=== PATIENT | female | born 1980 | race Caucasian/White ===

== ENCOUNTER 2023-10-14 15:23 | Emergency (ER) | payer MEDICAID ==
[~2023-10-14] VITALS: Ht 172.7 cm; Wt 83.6 kg
[2023-10-14 15:50] VITALS: BP 120/78; PULSE 103; RESP 16; TEMP 97.5; O2SAT 98
[2023-10-14] MEDS ORDERED: MUPI22OI30 TOP (17:11)
[2023-10-14] MEDS ORDERED: AMOX-100 PO (17:11)
== END 2023-10-14 17:28 | disposition home or self-care (01) ==
LOC: ER 15:24
DX: J02.9 Acute pharyngitis, unspecified (principal); R21 Rash and other nonspecific skin eruption; Z88.8 Allergy status to other drugs, medicaments and biological substances; Z88.2 Allergy status to sulfonamides
CPT/HCPCS: 99283

== ENCOUNTER 2024-05-21 09:45 | Day surgery (SDC) | payer MEDICAID ==
[2024-05-15 15:51] LABS: BASOPHILS % (AUTO) 0.9 % (0-1); EOSINOPHILS # (AUTO) 0.1 X10'3 (0-0.9); EOSINOPHILS % (AUTO) 2.1 % (0-6); LYMPHOCYTES # (AUTO) 2.3 X10'3 (1.1-4.8); LYMPHOCYTES % (AUTO) 43.1 % (21-51); MEAN CORPUSCULAR HEMOGLOBIN 31.4 PG (27.0-31.0); MEAN CORPUSCULAR HGB CONC 33.6 g/dL (33.0-36.5); MEAN CORPUSCULAR VOLUME 93.4 FL (78-98); MEAN PLATELET VOLUME 7.7 FL (7.4-10.4); MONOCYTES # (AUTO) 0.5 X10'3 (0-0.9); MONOCYTES % (AUTO) 8.6 % (2-12); NEUTROPHILS # (AUTO) 2.4 X10'3 (1.8-7.7); NEUTROPHILS % (AUTO) 45.3 % (42-75); PRE OP HEMATOCRIT 39.8 % (35.0-45.0); PRE OP HEMOGLOBIN 13.4 g/dL (12.0-16.0); PRE OP PLATELET COUNT 349 X10'3 (140-440); PRE OP WHITE BLOOD COUNT 5.4 10'3 (4.8-10.8); RED BLOOD COUNT 4.26 X10'6 (4.20-5.60); RED CELL DISTRIBUTION WIDTH 12.9 % (11.5-14.5)
[2024-05-15 16:05] LABS: ALBUMIN 4.1 G/DL (3.4-5.0); ALBUMIN/GLOBULIN RATIO 1.1 (1.1-1.5); ALKALINE PHOSPHATASE 81 IU/L (46-116); BLOOD UREA NITROGEN 6 MG/DL (7-18); BUN/CREATININE RATIO 7.7 (10.0-20.0); CALCIUM 8.6 MG/DL (8.5-10.1); CHLORIDE 103 MMOL/L (99-107); CREATININE 0.78 MG/DL (0.40-0.90); PRE OP ALT 27 U/L (30-65); PRE OP ANION GAP 5 (8-16); PRE OP AST 22 U/L (10-37); PRE OP BILIRUB, TOTAL 0.4 MG/DL (0.0-1.0); PRE OP GLUCOSE 98 MG/DL (70-104); PRE OP POTASSIUM 4.1 MMOL/L (3.4-5.1); PRE OP SODIUM 138 MMOL/L (135-145); TOTAL CARBON DIOXIDE 30.2 MMOL/L (24-32); eGFR 81 ML/MIN
[2024-05-17] MEDS: ceFAZolin 2gm in dextrose, iso 50 ML IV ONE (05:30)
[2024-05-21] VITALS (8 sets, daily range): BP systolic 105–117; BP diastolic 71–79; PULSE 64–97; RESP 9–19; TEMP 97.6; O2SAT 97–100
[~2024-05-21] VITALS: Ht 170.2 cm; Wt 82.3 kg
[2024-05-21] MEDS: ceFAZolin 2gm in dextrose, iso 50 ML IV ONE (05:30)
[2024-05-21] MEDS: DOCUMENT DATE & TIME OF BETA-BLOCKER PO ONE (08:30)
[~2024-05-21 09:45] MED LIST: BUPR-122 PO; CLON-368 PO; DULO-31 PO; HYDR200T73 PO; LEVO137T2 PO; PROP40TA72 PO; ZOLP10TA PO
[2024-05-21] MEDS: ringers solution, lacted 1,000 ML IV SCH (10:28)
[2024-05-21] MEDS: famotidine 20mg tablet PO ONE (10:29)
[2024-05-21] MEDS ORDERED: BUPIVAcaine/PF 2.5mg/ml (0.25%) 10ml vial ONE ×2 (10:47→11:04)
[2024-05-21] MEDS: BUPIVAcaine/PF 2.5mg/ml (0.25%) 10ml vial IJ ONE (11:21)
[2024-05-21] MEDS ORDERED: midazolam 1 mg/ML 2ml injection ONE (12:02)
[2024-05-21] MEDS ORDERED: fentaNYL/PF 50MCG/1 ML 2ML syringe ONE (12:02)
[2024-05-21] MEDS ORDERED: morphine 2 MG/ML inj. syringe IV PRN (12:10)
[2024-05-21] MEDS ORDERED: labetalol 20mg/4ml (5mg/ml) syringe IV PRN (12:10)
[2024-05-21] MEDS ORDERED: ondansetron/PF 4mg/2ml inj IV PRN (12:10)
[2024-05-21] MEDS ORDERED: ringers solution, lacted 1,000 ML IV SCH (12:10)
[2024-05-21] MEDS ORDERED: meperidine/PF 25mg/ml syringe IV PRN (12:10)
[2024-05-21] MEDS ORDERED: hydrALAZINE 20mg/ml inj. IV PRN (12:10)
[2024-05-21] MEDS ORDERED: proCHLORperazine 10 MG/2 ml inj IV PRN (12:10)
[2024-05-21] MEDS ORDERED: morphine 4 MG/ML inj SYRINge IV PRN (12:10)
[2024-05-21] MEDS ORDERED: HYDROmorphone/PF 0.2 MG/ML SYRINGE IV PRN ×2 (12:10)
[2024-05-21] MEDS ORDERED: propofol inj 20 ML IV ONE (12:21)
[2024-05-21] MEDS ORDERED: LIDOcaine 0.5% (5mg/ml) 50ml vial ONE (12:21)
[2024-05-21] MEDS: acetaminophen 1,000mg/100ml IV 100 ML IV ONE (13:14)
== END 2024-05-21 13:42 | disposition home or self-care (01) ==
LOC: PAS 09:45
PROVIDERS: ATTEND Orthopaedic Surgery Hand Surgery
DX: S62.627A Displaced fracture of middle phalanx of left little finger, initial encounter for closed fracture (principal); E78.5 Hyperlipidemia, unspecified; G43.909 Migraine, unspecified, not intractable, without status migrainosus; F41.9 Anxiety disorder, unspecified; F31.9 Bipolar disorder, unspecified; M79.7 Fibromyalgia; G47.33 Obstructive sleep apnea (adult) (pediatric); I25.2 Old myocardial infarction; Z79.890 Hormone replacement therapy; Z79.899 Other long term (current) drug therapy; Z90.49 Acquired absence of other specified parts of digestive tract; Z98.890 Other specified postprocedural states; Z88.1 Allergy status to other antibiotic agents; Z88.8 Allergy status to other drugs, medicaments and biological substances; X58.XXXA Exposure to other specified factors, initial encounter; Y93.89 Activity, other specified; Y92.89 Other specified places as the place of occurrence of the external cause; Y99.8 Other external cause status
CPT/HCPCS: 26567; 36415; 80053; 82948; 85025; 93005; C1713; J0131; J0690; J2250; J2704; J3010; J3490; J7030; J7120; Z7506; Z7512; A4215; A4618; A7000

== ENCOUNTER 2024-06-14 13:08 | Emergency (ER) | payer MEDICAID ==
[~2024-06-14] VITALS: Ht 167.6 cm; Wt 76.4 kg
[2024-06-14 13:40] VITALS: BP 134/92; PULSE 85; RESP 16; TEMP 97.7; O2SAT 98
[2024-06-14] MEDS ORDERED: DULO20CA50 PO (15:00)
[2024-06-14] MEDS ORDERED: LORA-269 PO (15:00)
== END 2024-06-14 15:13 | disposition home or self-care (01) ==
LOC: ER 13:08
DX: M79.10 Myalgia, unspecified site (principal); T43.225A Adverse effect of selective serotonin reuptake inhibitors, initial encounter; F32.A Depression, unspecified; Z88.2 Allergy status to sulfonamides; Z88.1 Allergy status to other antibiotic agents; Z88.8 Allergy status to other drugs, medicaments and biological substances; Z91.128 Patient's intentional underdosing of medication regimen for other reason; Y92.89 Other specified places as the place of occurrence of the external cause
CPT/HCPCS: 99283